=== PATIENT | female | born 1965 | race Caucasian/White ===

== ENCOUNTER → 2020-06-14 13:49 | Outpatient (CLI) | payer OTHER, SELFPAY ==
--- NOTE | 2020-06-14 13:52 | US_ITS ---
STUDY: THYROID ULTRASOUND REASON FOR EXAM: Female, 54 years old. HX OF LT THYROIDECTOMY TECHNIQUE: Ultrasound evaluation of the thyroid was performed with real-time and static arcos-scale imaging. COMPARISON: None. FINDINGS: RIGHT LOBE: The right lobe of the thyroid gland is enlarged and measures 5.8 cm x 3.2 centimeters x 2.2 cm. There is a heterogeneous echotexture. Multiple solid nodules are seen throughout the lobe. The largest measures 2.7 cm x 2.1 cm x 1.2 cm. Intramuscular nodular appearing nodular vascularity is seen. A biopsy is recommended. LEFT LOBE: The patient is status post left thyroidectomy. The regional lymph nodes are normal. US/Thyroid IMPRESSION: Enlargement of the right lobe of the thyroid with multiple solid nodules as described. A dominant nodule with increased vascularity is seen. This measures 2.7 cm x 2.1 cm by 1.2 cm. A biopsy is recommended. Electronically Signed: Max Serna, at 15:49 EDT , Service support ,
--- NOTE | 2020-06-14 14:23 | BD_ITS ---
STUDY: DUAL ENERGY X-RAY ABSORPTIOMETRY / DXA REASON FOR EXAM: Female, 54 years old. 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 COMPARISON: None. FINDINGS: Lumbar Spine (L1-L4): g/cm2 (1.112) / T-score (-0.5) / Z-score (0.4) Findings are suggestive of normal bone density with a low fracture risk. Left Femur Total: g/cm2 (0.732) / T-score (-2.2) / Z-score (-1.5) Left Femoral Neck: g/cm2 (0.716) / T-score (-2.3) / Z-score (-1.3) Right Femur Total: g/cm2 (0.730) / T-score (-2.2) / Z-score (-1.5) Right Femoral Neck: g/cm2 (0.666) / T-score (-2.7) / Z-score (-1.6) BD/Dexa Bone Density Study IMPRESSION: The patient is considered osteoporotic as outlined below according to World Colin Organization (WHO) criteria with a high fracture risk. Reference Information: The T-score is the number of standard deviations above or below the standard which is normal for young adults at their peak bone mineral density. The World Health Organization (WHO) interprets the T-scores as follows: Above -1 Normal bone density Between -1 and -2.5 Osteopenia Equal to / or below -2.5 Osteoporosis As a practical clinical guideline, osteopenia may be graded as follows: Mild -1 through -1.5 Moderate -1.6 through -2.0 Severe -2.1 through -2.4 The Z-score is the number of standard deviations above or below age-matched controls. A Z-score of less than -1.5 would be considered abnormal. References: 1. NIH Osteoporosis and Related Bone Diseases http://www.osteo.org 2. International Society for Clinical Densitometry http://www.iscd.org 3. National Osteoporosis Foundation http://www.nof.org Electronically Signed: Max Serna, at 15:55 EDT , Service support ,
== END ==
PROVIDERS: PCP Internal Medicine; Referring Provider Internal Medicine; Visit Provider Internal Medicine
DX: E04.1 Nontoxic single thyroid nodule (principal); Z78.0 Asymptomatic menopausal state
CPT/HCPCS: 76536; 77080

== ENCOUNTER → 2020-07-08 | Outpatient (CLI) | payer OTHER, SELFPAY ==
--- NOTE | 2020-07-08 13:00 | ASPS_PTH ---
PATIENT: IESHA WALLACE LOC: [facility] U#:[id number] AGE/SX: 54/F ROOM: RE07/08/[address]: Dr. Tom Rao MD : 1965 BED: DIS: 07/08/2020 SPEC #: [id number] RECD: 07/08/20 13:56 STATUS: JOHANA DADA #: [id number] HANDY: 07/08/20 13:[address]: Tom Rao DEPT: CYTOLOGY RECD BY: Opal Ya ENTERED: 07/11/20 13:38 SP TYPE: ASPIRATION OTHR DR: Dr. Beatrice Mayer DO Tissues: Thyroid gland, NOS Procedures: Special Stain Group II Cytology Other HEADER OPERATION: Ultrasound-guided fine needle aspiration right thyroid PRE-OP DIAGNOSIS: Uninodular goiter TISSUE SUBMITTED: Fine needle aspiration right thyroid (12 slides) DIAGNOSIS CYTOLOGY Fine needle aspiration, right thyroid nodule (smears): Adequate for evaluation. Negative, consistent with benign follicular/colloid nodule. AM:penny 07/12/20 CYTOLOGY STUDY Slides are reviewed. CYTOLOGY GROSS Received are 12 smears labeled with the patient's name and designated per the requisition as right thyroid. Submitted for staining. / penny 07/11/20 TC:5 CPT: 20971
[2020-07-08 13:04] VITALS: BMI 21.6
== END | disposition home or self-care (01) ==
PROVIDERS: PCP Internal Medicine; Referring Provider Surgery; Visit Provider Surgery
DX: E04.1 Nontoxic single thyroid nodule (principal)
CPT/HCPCS: 88161; 88313

== ENCOUNTER → 2020-07-15 09:39 | Outpatient (CLI) | payer OTHER, SELFPAY ==
[2020-07-08 13:04] VITALS: BMI 21.6
[2020-07-15] MEDS: Zoledronic Acid 5 MG 100 ML 300 MG IV (09:48)
[2020-07-15 09:52] VITALS: BP 93/71; PULSE 71; RESP 16; TEMP 36.3; O2SAT 100; BMI 22.3
[2020-07-15] MEDS: 0.9% NaCl Peripheral Flush Adult/Peds IV (09:58)
== END ==
PROVIDERS: PCP Internal Medicine; Referring Provider Internal Medicine; Visit Provider Internal Medicine
DX: M85.80 Other specified disorders of bone density and structure, unspecified site (principal)
CPT/HCPCS: 96365; A4216; J3489

== ENCOUNTER → 2021-03-14 19:53 | Outpatient (CLI) | payer OTHER, SELFPAY ==
[2020-07-15 09:52] VITALS: BMI 22.3
== END ==
PROVIDERS: PCP Internal Medicine; Visit Provider Internal Medicine
DX: R06.81 Apnea, not elsewhere classified (principal)
CPT/HCPCS: 95810

== ENCOUNTER → 2021-08-04 10:19 | Outpatient (CLI) | payer OTHER, SELFPAY ==
--- NOTE | 2021-08-04 10:24 | US_ITS ---
STUDY: THYROID ULTRASOUND REASON FOR EXAM: Female, 55 years old. THYROID NODULE, left thyroidectomy in 2011 TECHNIQUE: Ultrasound evaluation of the thyroid was performed with real-time and static arcos-scale imaging. COMPARISON: 06/14/2020 FINDINGS: RIGHT LOBE: The right lobe of the thyroid gland measures 5.6 x 2.8 x 2.3 cm. There is a homogeneous echotexture. 1.6 centimeter upper pole solid nodule. 2.8 cm upper pole solid nodule in the hospital, nodule with smooth borders. 1.1 cm mid thyroid solid nodule. 1.1 cm mid thyroid solid nodule. 1.5 cm lower pole solid nodule. 1.6 cm lower pole mostly solid nodule. ISTHMUS: The isthmus measures 1 mm. US/Thyroid IMPRESSION: 2.8 cm TI-RADS 3 nodule in the upper pole meets criteria for fine-needle aspiration. Electronically Signed: Jordon Carolina MD at 22:16 EDT Tel , Service support ,
== END ==
PROVIDERS: PCP Internal Medicine; Referring Provider Internal Medicine; Visit Provider Internal Medicine
DX: E04.1 Nontoxic single thyroid nodule (principal)
CPT/HCPCS: 76536

== ENCOUNTER → 2021-08-22 11:00 | Outpatient (CLI) | payer OTHER, SELFPAY ==
[2021-08-22] MEDS: 0.9% NaCl Peripheral Flush Adult/Peds IV (11:12)
[2021-08-22] MEDS: Zoledronic Acid 5 MG 100 ML 300 MG IV (11:12)
[2021-08-22 11:15] VITALS: BP 103/52; PULSE 67; RESP 16; TEMP 36.6; O2SAT 96
== END ==
PROVIDERS: PCP Internal Medicine; Referring Provider Internal Medicine; Visit Provider Internal Medicine
DX: M85.80 Other specified disorders of bone density and structure, unspecified site (principal)
CPT/HCPCS: 96365; A4216; J3489

== ENCOUNTER 2021-09-04 09:00 | Emergency (ER) | payer OTHER, SELFPAY ==
[2021-09-04 09:00] VITALS: BP 132/75; PULSE 93; RESP 16; TEMP 36.2; O2SAT 95; BMI 22.8
--- NOTE | 2021-09-04 09:20 | RAD_ITS ---
STUDY: X-RAY - RIGHT KNEE REASON FOR EXAM: Female, 55 years old. Injury. Pain. TECHNIQUE: 4 view(s) of the knee. COMPARISON: None. FINDINGS: Normal visualized distal femur. Normal visualized proximal tibia and fibula. Normal proximal tibiofibular articulation. Normal medial femorotibial compartment. Normal lateral femorotibial compartment. Normal patellofemoral articulation. The soft tissue structures are unremarkable. RAD/Knee 4 or More Views IMPRESSION: Normal x-ray examination of the knee. Electronically Signed: Haider Siu MD at 9:40 EST , Service support ,
--- NOTE | 2021-09-04 09:20 | RAD_ITS ---
STUDY: X-RAY - LEFT FOOT CLINICAL: Female, 55 years old. Injury. Pain. TECHNIQUE: 3 view(s) of the foot. COMPARISON: None. FINDINGS: Normal talus, calcaneus, and tarsal bones. Normal visualized subtalar, talonavicular, calcaneocuboid, tarsal and tarsometatarsal articulations. Comminuted nondisplaced fracture of the base of the fifth metatarsal. Normal metatarsophalangeal joint of the great toe. Normal tibial and fibular sesamoid bones. Normal interphalangeal joint of the great toe. Normal phalanges of the great toe. Normal second through fifth metatarsophalangeal joints. Normal interphalangeal joints and phalanges of the lesser toes. The soft tissue structures are unremarkable. RAD/Foot min 3 Views IMPRESSION: Base of fifth metatarsal fracture as described. Electronically Signed: Haider Siu MD at 9:39 EST , Service support ,
--- NOTE | 2021-09-04 09:20 | ED.VIS.FALL ---
HPI HPI - Fall History of Present Illness Chief Complaint: Fall Informant: patient Narrative Narrative: 55-year-old female states that last evening she was going down the basement stairs with laundry and slipped on it and fell. She states she twisted the left foot and ankle and then landed on the right knee. She has pain in the right knee as well as swelling and bruising on the left foot. She states that she is not able to bear weight. PFSH PFSH Medical History Anxiety Depression Thyroid nodule Allergy/AdvReac Type Severity Reaction Status Date / Time Iodinated Contrast Media Allergy Hives Verified 09/04/21 09:02 Surgical History S/P fine needle aspiration (~06/2020) s/p left thyroidectomy S/P parathyroidectomy s/p partial pancreas removal Social History Smoking Status: Current every day smoker tobacco type: cigarettes alcohol intake: current alcohol intake frequency: a few times a week ROS ROS ED Constitutional Constitutional ED: Denies chills or weight loss Eyes Eyes: Denies change in vision or diplopia ENT ENT ED: Denies ear pain, rhinorrhea or sore throat Cardiovascular Cardiovascular: Denies chest pain, orthopnea, palpitations or racing heartbeat Respiratory/Chest Respiratory/Chest: Denies cough, dyspnea or orthopnea Gastrointestinal Gastrointestinal: Denies abdominal pain, diarrhea, nausea or vomiting Genitourinary Genitourinary ED: Denies dysuria, hematuria or urinary frequency Musculoskeletal Musculoskeletal: Reports other Details: See history of present illness ; Denies arthralgias or myalgias Integumentary Denies abscess or rash Neurologic Neurologic: Denies headache(s) or weakness Psychiatric Psychiatric: Denies anxiety, depression, suicidal ideation or suicidal thoughts Endocrine Endocrinology: Denies polydipsia, polyphagia or polyuria Allergic/Immunologic Allergic/Immunologic ED: Denies mouth swelling, tongue swelling or urticaria EXAM Physical Exam Const Vital Signs: 09/04/21 09:00 Temperature 97.2 F L Temperature Source Temporal Pulse Rate 93 Respiratory Rate 16 Blood Pressure 132/75 H Blood Pressure Mean 94 Pulse Ox 95 Oxygen Delivery Method Room Air Positive well nourished and well developed General Appearance ED: well developed HEENT Reports normocephalic, head/scalp atraumatic and moist mucous membranes HEENT Narrative: Normal oral pharyngeal exam atraumatic Eyes PERRL and EOMs intact bilaterally Neck full ROM, no lymphadenopathy, supple and no JVD Resp normal respiratory effort and clear to auscultation bilaterally Cardio regular rate, regular rhythm and no murmurs GI normal to inspection, nondistended, normoactive bowel sounds and non-tender Palpation: soft Back/Spine no CVA tenderness and normal ROM Extremity Extremity Narrative: The left foot shows ecchymosis and swelling over the mid to lateral foot. No fifth metatarsal pain. There is tenderness over the dorsal surface of the midfoot. There is no fibular head pain. Negative Becerril's. No ankle tenderness. The right knee shows tenderness over the lateral tibial plateau. There is no effusion. Patella appears normal. Neurovascularly intact distal to the injuries General Extremety ED: Negative for edema General Extremity: Negative for edema Neuro oriented x3 and CN's II-XII intact bilaterally Sensorium / Orientation: alert Motor Exam: strength 5/5 throughout Psych mental status grossly normal Mood & Affect: Negative for depressed or tearful Skin no rashes or lesions noted and no wounds MDM MDM MDM Narrative Medical decision making narrative: My interpretation of the plain films of the left foot is a pseudo-Day fracture at the base of the fifth metatarsal. My interpretation of plain films of the right knee is no acute process. Patient was placed in a walking boot she does not wish to have any pain medications. I will refer her to podiatry. Radiography Diagnostic Testing: Clinical Impression(s) from Imaging Studies Foot X-Ray 09/04/21 09:20 IMPRESSION: Base of fifth metatarsal fracture as described. Electronically Signed: Haider Siu MD at 9:39 EST , Service support , Knee X-Ray 09/04/21 09:20 IMPRESSION: Normal x-ray examination of the knee. Electronically Signed: Haider Siu MD at 9:40 EST , Service support , Discharge Plan Triage Chief Complaint: Fall ED Provider: Tom Conner Dx/Rx/DC Orders Clinical Impression: Contusion of knee, right, Closed fracture of fifth metatarsal bone Instructions: Fifth Metatarsal Fx Primary Care Provider: Beatrice Mayer Referrals: Beatrice Mayer DO [Primary Care Provider] - Ignacio Olmos DPM [STAFF PHYSICIAN] - As soon as possible Disposition Disposition: Home, Self Care
== END 2021-09-04 10:20 | disposition home or self-care (01) ==
PROVIDERS: Emergency Provider Emergency Medicine; PCP Internal Medicine
DX: S92.355A Nondisplaced fracture of fifth metatarsal bone, left foot, initial encounter for closed fracture (principal); S80.01XA Contusion of right knee, initial encounter; W10.9XXA Fall (on) (from) unspecified stairs and steps, initial encounter; Y93.E2 Activity, laundry; Y92.9 Unspecified place or not applicable; Y99.9 Unspecified external cause status; F17.210 Nicotine dependence, cigarettes, uncomplicated
CPT/HCPCS: 73564; 73630; 99284

== ENCOUNTER → 2022-09-03 | Outpatient (CLI) | payer OTHER, SELFPAY ==
[2022-09-03 13:50] VITALS: BP 117/54; PULSE 80; RESP 16; TEMP 36.4; O2SAT 100; BMI 19.0
[2022-09-03] MEDS: DENOSUMAB 60 MG/ML SC (13:57)
== END | disposition home or self-care (01) ==
LOC: MEDOUTP 13:42
PROVIDERS: PCP Internal Medicine; Referring Provider Internal Medicine Endocrinology, Diabetes & Metabolism; Visit Provider Internal Medicine Endocrinology, Diabetes & Metabolism
DX: M81.0 Age-related osteoporosis without current pathological fracture (principal)
CPT/HCPCS: 96372; J0897

== ENCOUNTER → 2022-09-19 | Outpatient (CLI) | payer OTHER, SELFPAY ==
--- NOTE | 2022-09-19 10:31 | US_ITS ---
EXAM: US SOFT TISSUES HEAD AND NECK, THYROID CLINICAL INDICATION: Thyroid nodule TECHNIQUE: Sanchez scale and color doppler imaging was performed of the thyroid gland. This report was created using [employer] report generation technology. COMPARISON: None. FINDINGS: Absence of the left thyroid lobe. RIGHT THYROID LOBE: Right thyroid lobe measures 5.4 x 2.8 x 2.0 cm. Extensive nodular echotexture with no significant change in the size of the individual nodules. US/Thyroid IMPRESSION: Stable multinodular right thyroid gland. Electronically Signed: Yury Ramirez MD at 14:22 EST ,
--- NOTE | 2022-09-19 10:35 | BD_ITS ---
STUDY: DUAL ENERGY X-RAY ABSORPTIOMETRY / DXA REASON FOR EXAM: Female, 56 years old. 627.8Menopausal postmenopausalBONE DENSITY REASON FOR EXAM TECHNIQUE: Bone Mineral Density (BMD) measurements of lumbar spine and bilateral hips were obtained. COMPARISON: Comparison is made with prior examination 06/14/2020. FINDINGS: Lumbar Spine (L1-L4): g/cm2 (0.932) / T-score (-0.9) / Z-score (0.3) Findings are suggestive of normal bone density with a low fracture risk. Left Femur Total: g/cm2 (0.659) / T-score (-2.3) / Z-score (-1.5) Left Femoral Neck: g/cm2 (0.517) / T-score (-3.0) / Z-score (-1.8) Right Femur Total: g/cm2 (0.668) / T-score (-2.2) / Z-score (-1.4) Right Femoral Neck: g/cm2 (0.545) / T-score (-2.7) / Z-score (-1.6) The T-Scores on the most recent prior examination were: Lumbar Spine (L1-L4): There has been worsening of bone density since the previous examination. Left Femur Total: which represents a worsening of 2.3%. Right Femur Total: which represents a worsening of 4.6%. BD/Dexa Bone Density Study IMPRESSION: The patient is considered osteoporotic as outlined below according to World Colin Organization (WHO) criteria with a high fracture risk. There has been worsening of bone density since the previous examination. Reference Information: The T-score is the number of standard deviations above or below the standard which is normal for young adults at their peak bone mineral density. The World Health Organization (WHO) interprets the T-scores as follows: Above -1 Normal bone density Between -1 and -2.5 Osteopenia Equal to / or below -2.5 Osteoporosis As a practical clinical guideline, osteopenia may be graded as follows: Mild -1 through -1.5 Moderate -1.6 through -2.0 Severe -2.1 through -2.4 The Z-score is the number of standard deviations above or below age-matched controls. A Z-score of less than -1.5 would be considered abnormal. References: 1. NIH Osteoporosis and Related Bone Diseases www osteo.org 2. International Society for Clinical Densitometry www iscd.org 3. National Osteoporosis Foundation www nof.org Electronically Signed: Max Serna MD at 15:27 EST ,
== END | disposition home or self-care (01) ==
PROVIDERS: PCP Internal Medicine; Visit Provider Internal Medicine
DX: E04.1 Nontoxic single thyroid nodule (principal); Z78.0 Asymptomatic menopausal state
CPT/HCPCS: 76536; 77080

== ENCOUNTER → 2023-07-25 | Outpatient (CLI) | payer OTHER, SELFPAY ==
--- NOTE | 2023-07-25 12:57 | ART_ITS ---
Reason For Study: Polyneuropathy Procedure A bilateral upper extremity continuous wave Doppler with analog waveform analysis and segmental pressures. Left Segmental Pressures Left brachial= 125mmHg. Left forearm by way of the radial artery = 124mmHg. Left radial= 141mmHg. Left ulnar= 138mmHg. Left digit = 118 mmHg. The left brachial waveforms are triphasic. The left radial waveforms are triphasic. The left ulnar waveforms are triphasic. Right Segmental Pressures Right brachial= 125mmHg. Right forearm pressure by way of the radial artery = 127mmHg. Right radial= 150mmHg. Right ulnar= 147mmHg. Right digit = 123 mmHg. The right brachial waveforms are triphasic. The right radial waveforms are triphasic. The right ulnar waveforms are triphasic. Indices The right wrist-brachial index is 1.20. The right digital-brachial index is 0.98. The left wrist- brachial index is 1.13. The left digital-brachial index is 0.94. VL/Upper Extremity Arterial Study Interpretation Summary Right wrist-brachial index 1.2, normal. Digit index and Doppler/PVR waveforms o f the right arm normal at rest. Left wrist-brachial index 1.13, normal. Digit index and Doppler/PVR waveforms o f the left arm normal at rest. Ordering Physician: Beatrice Mayer Referring Physician: Beatrice Mayer D.O. Performed By: Tashi Henriquez RVT
== END | disposition home or self-care (01) ==
LOC: CVS 12:57
PROVIDERS: PCP Internal Medicine; Referring Provider Internal Medicine; Visit Provider Internal Medicine
DX: G62.9 Polyneuropathy, unspecified (principal); R60.0 Localized edema
CPT/HCPCS: 93923

== ENCOUNTER → 2023-11-04 | Outpatient (CLI) | payer OTHER, SELFPAY ==
--- NOTE | 2023-11-04 12:54 | US_ITS ---
STUDY: THYROID ULTRASOUND REASON FOR EXAM: Female, 58 years old. Thyroid nodule -- thyroid nodule TECHNIQUE: Ultrasound evaluation of the thyroid was performed with real-time and static arcos-scale imaging. COMPARISON: September 19, 2022 and August 04, 2021 FINDINGS: RIGHT LOBE: The right lobe of the thyroid gland measures 5.2 x 2.9 x 2.2 cm. There is a heterogeneous echotexture. There is a persistent stellate dominant mass within the right thyroid with radiating bands and essentially located calcification. There is visualized focal vascularity. This nodule measures 3.0 x 1.9 x 2.9 cm with the measured volume is 6.2 mL. Compared to prior study the right was 4.7 mL with a measurement of 2.9 x 1.5 x 2.1 cm. The highly vascular appearing mass. There is a persistent solid appearing nodule measuring 1.2 x 1.4 x 1.3 cm. LEFT LOBE: There has been a left side thyroidectomy. ISTHMUS: The isthmus measures 4.6 . There is adjacent mildly thickened cortical lymph nodes present in the left neck measuring 1.1 x 0.4, 1.6 x 0.4 and 0.8 cm. US/Thyroid IMPRESSION: Highly suspicious appearing large mass dominant mass within the right thyroid with a stellate appearance with a low attenuating or fluid and partially calcified center which morphologically is concerning for neoplasm. The volume is measured as larger than prior study August 04, 2021. This has been previously biopsied recommend consideration for repeating the biopsy if possible. This falls into a category of moderately suspicious for which a fine-needle aspiration is warranted if the lesion is greater than 1.5 cm. Solid-appearing nodule right thyroid fairly similar in size to the prior study. This particular lesion appears taller than wide which is similar to the prior study which falls into a category of moderately suspicious as well which are final aspiration is warranted if its greater than 1.5 cm. Status post left nephrectomy. Visualized active Neck Soft Tissue lymph nodes. Electronically Signed: Cherry Bermudez MD at 3:26 EST ,
== END | disposition home or self-care (01) ==
PROVIDERS: PCP Internal Medicine; Referring Provider Internal Medicine; Visit Provider Internal Medicine
DX: E04.1 Nontoxic single thyroid nodule (principal)
CPT/HCPCS: 76536

== ENCOUNTER → 2023-11-13 | Outpatient (CLI) | payer OTHER, SELFPAY ==
--- NOTE | 2023-11-13 09:45 | US_ITS ---
STUDY: ABDOMINAL ULTRASOUND - RIGHT UPPER QUADRANT; ELASTOGRAPHY REASON FOR VISIT: Female, 58 years old. Elevated liver function tests. TECHNIQUE: Ultrasound evaluation of the right upper quadrant was performed with real-time and static arcos-scale imaging. Point quantification shear wave elastography was performed ([employer]). TECHNICAL QUALITY: Adequate. COMPARISON: None. FINDINGS: Liver: The liver measures 13.3 cm. There is increased echogenicity consistent with fatty infiltration. The bile ducts are within normal limits. There is hepatic color flow. The direction of portal flow is hepatopetal. There is no demonstrated mass lesion. Median liver stiffness measured 10.7 kPa. Gallbladder: Normal distended gallbladder. The gallbladder wall measures 1.7 mm. There is a negative sonographic Shelby''s sign. There is no pericholecystic fluid. There are no gallstones. Common Bile Duct (C.B.D.): The common bile duct measures 4.1 mm. Pancreas: There is normal echogenicity of the visualized pancreas. There is no demonstrated pancreatic mass or cyst. Right Kidney: Normal size of the right kidney. The right kidney measures 10.2 cm x 4.8 cm x 4.1 cm. Normal renal cortex. The right cortex measures 1.0 cm. There is no demonstrated renal mass or cyst. There is no right hydronephrosis. US/ABD Limited w/ Elastography IMPRESSION: 1. Liver stiffness measures 10.7 kPa compatible with F2-F3 (Mild to moderate liver fibrosis) Metavir score. Electronically Signed: Max Serna MD at 13:12 EST ,
== END | disposition home or self-care (01) ==
PROVIDERS: PCP Internal Medicine; Referring Provider Internal Medicine; Visit Provider Internal Medicine
DX: R79.89 Other specified abnormal findings of blood chemistry (principal)
CPT/HCPCS: 76705; 76981

== ENCOUNTER 2024-02-17 11:30 | Outpatient (RCR) | payer OTHER, SELFPAY ==
--- NOTE | 2024-01-28 14:18 | HP.PTEVAL_ITS ---
Patient's Visit Information Visit Information Visit Information: IESHA WALLACE is a 58 year old F referred to Physical Therapy by Dr. Beatrice Mayer DO with a diagnosis of NECK PAIN. Date of Evaluation: 01/28/24 Physical Therapist: Gunjan Benites PT, Cert MDT Visit Plan Frequency: 1-2x /Week Duration: 4-6 Weeks Plan: US, E-STIM WITH MH, STM, POSTURE CORRECTION, INSTRUCTION IN APPROPRIATE ACTIVITY MODIFICATIONS, CERVICAL ROM, NECK AND UE STRENGTHENING EX TO HELP MEET SET GOALS. 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 [employer] - WORKING ABOUT 50 TO 55 HOURS A WK - 7 DAYS A WK. Disability: NO Present symptoms: SHAYNA NECK PAIN R > L. CONSTANT NUMBNESS TIPS OF SHAYNA FINGERS. OTHREWISE PATIENT DENIES SHAYNA UE NUMBNESS AND TINGLING. INTERMITTENT R UPPER ARM PAIN. MILD GRIMM'S ABOUT ONCE A WEEK. PROGRESSIVE DIFFICULTY WRITING. Present since: 10 YEARS AGO. FLARED UP IN SEP 2023. Pain Scale: Worst - 8/10 Least - 2/10 Currently: 2/10 Commenced as a result of: NO APPARENT REASON. Symptoms at onset: NECK PAIN Worse: STRESS, TRYING TO WRITE, LOOKING AT COMPUTER AND WRITING AT SAME TIME, TURNING HEAD TO LOOK TO BACK OUT IN CAR, TURNING HEAD IN GENERAL. HOLDING PHONE AND WRITING. Better: NECK BRACE AT BED FOR ABOUT 3 MONTHS OR MORE, OTC PAIN PATCHES. Disturbed sleep: YES Previous history/Previous treatment: PHYSICAL THERAPY AT [facility] 10 YEARS AND HELPED FOR YEARS INCLUDING SOME MASSAGE. OTHERWISE HAS MANAGED ON HER OWN AVOIDING CERTAIN MVMTS. NO CHIROPRACTIC. NO NECK SURGERY. NO NECK INJECTIONS. This episode: NOTHING. Dizziness: NO Tinnitus: YES Nausea: YES Shortness of Breath: NO Difficulty Swollowing: YES - ABOUT ONCE A WEEK - FOR ABOUT 4 YEARS. Gait: NORMAL Accidents: NO Unexplained weight loss: NO Imaging: RECENT NECK X-RAY: IMPRESSION: Moderate degenerative disc disease with 4 mm of anterolisthesis of C4 on C5 and straightening of the normal lordotic curvature. PMH/Recent major surgery: OSTEOPOROSIS, MEN-1, DEPRESSION, 1/2 PANCREASE AND SPLEEN REMOVED. 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 SURGERIES WERE FOR MEN-1 WHICH RESULTS IN OVER PRODUCTION OF CALCIUM. RAYNAUDS DZ. Objective Objective: Sitting Posture/Standing Posture: FORWARD HEAD. ROUNDED SHOULDERS. NO TORTICOLLIS. Active Correction of posture: BETTER. ABLE TO CORRECT BUT NOT MAINTAIN. Other Observations: INDEP GAIT AND TRANSFERS. Sensory deficit: SHAYNA UE LIGHT TOUCH SENSATION GROSSLY INTACT AND SYMMETRICAL. PATIENT IS ABLE TO IDENTIFY ALL FINGER TIPS BEING TOUCHED WITH EYES CLOSED WITH TESTING BUT REPORTS NUMBNESS IN ALL TIPS. ROM deficit: SHAYNA UE ROM WFL AND ABLE TO OPPOSE ALL FINGERS. Motor deficit: SHAYNA UE'S GROSSLY 5/5 WITH MMT'ING EXCEPT SHLD'S 4/5. 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 Reflexes: 1+ SHAYNA UE'S. Dural Signs: POSITIVE R UE. Cervical Mvmt Loss: Flex: MIN - INCREASES - NW Pro: NIL - NE Ext: MIN - INCREASES - NW Ret: MOD - NE RSB: MOD - INCREASES - W* LSB: MOD - INCREASES - W R Rot: KUSUM - INCREASES - W L Rot: KUSUM - INCREASES - W Postural strength: FAIR Palpation: INCREASED MUSCLE TONE SHAYNA CERVICAL MUSCULATURE THROUGHOUT. TENDERNESS THROUGHOUT WELL ESPECIALLY SHAYNA UT'S AND SHAYNA UT'S HAVE MULTIPLE TRIGGER POINTS. Balance/Special Test Scores Oswestry Neck Score: 22 Goals Goal 1:: DECREASE C/O NECK AND UE SX'S BY AT LEAST 50% TO EASE WORK AND ADL FUNCTION Goal Time Frame: 4-6 Weeks Goal 2:: PATIENT WILL HAVE INCREASED PAINFREE CERVICAL ROM ALL PLANES TO EASE WO RK AND ALD FUNCTION Goal Time Frame: 4-6 Weeks Goal 3:: PATIENT WILL HAVE INCREASED UE AND POSTURAL STRENGTH TO ALL FOR RETURN TO PLOF Goal Time Frame: 6-8 Weeks Goal 4:: PATIENT'S NECK OSWESTRY SCORE WILL IMPROVE BY AT LEAST 5 POINTS. Goal Time Frame: 2-4 Weeks Goal 5:: PATIENT WILL BE INDEP WITH A HEP FOR CONTINUED IMPROVEMENT ONCE FORMAL PHYSICAL THERAPY CONCLUDES. Goal Time Frame: 6-8 Weeks Rehabilitation Potential Physical Therapy Diagnosis: THIS PATIENT PRESENTS TO PT WITH SIGNIFICANT CERVICAL MVMT LOSS AND MUSCLE GUARDING. SHE ALSO HAS POSTURAL/SHLD WEAKNESS. Rehabilitation Potential: Fair Anticipated Interventions Patient/Client Instruction: Educate patient on: Condition, Plan of Care and Ri sk Factors For the Purpose of:: To improve self management Therapeutic Exercise to Include: Strength training, Body mechanics, Postural training, Flexibilty training, Neuromotor development and Scapular Strength/Stabilization For the Purpose of:: To decrease pain, To increase ROM, To improve muscle performance and motor function, To increase tolerance to activity/condition/position and To improve ability of physical actions for home/community/work/leisure Manual Therapy Techniques to Include: Trigger point massage and Soft tissue mobilization For the Purpose of:: To decrease pain and To improve nutrient delivery to tissue Thermo therapy (hot pack): Yes Ultrasound (thermal/non thermal): Yes (1.3 W/CM2 100% X 8 MIN TO SHAYNA POSTERIOR CERVICAL MUSCULATURE) For the Purpose of:: To decrease pain and To improve nutrient delivery to tissue Text: Thank you for the opportunity to evaluate your patient. For Medicare and Medicare HMO plans, please review the plan of care and approve it. It will need to be FAXED BACK to us at [phone] for Medicare purposes. For Medicare only, by signing this I certify the plan of care. Please let me know if there are questions or concerns regarding this plan of care. Physician Signature: Date:
== END 2024-02-17 19:00 | disposition home or self-care (01) ==
LOC: PT 11:30
PROVIDERS: PCP Internal Medicine; Visit Provider Internal Medicine
DX: M54.2 Cervicalgia (principal)
CPT/HCPCS: 97035; 97162; 97530

== ENCOUNTER → 2024-09-29 | Outpatient (CLI) | payer OTHER, SELFPAY ==
--- NOTE | 2024-09-29 15:09 | BD_ITS ---
STUDY: DUAL ENERGY X-RAY ABSORPTIOMETRY / DXA REASON FOR EXAM: Female, 58 years old. [id number] -- Postmenopausal status TECHNIQUE: Bone Mineral Density (BMD) measurements of lumbar spine and bilateral hips were obtained. COMPARISON: Comparison is made with prior study dated September 19, 2022. FINDINGS: Lumbar Spine (L1-L4): g/cm2 (0.957) / T-score (-0.7) / Z-score (0.7) Findings are suggestive of normal bone density with a low fracture risk. Left Femur Total: g/cm2 (0.691) / T-score (-2.1) / Z-score (-1.1) Left Femoral Neck: g/cm2 (0.564) / T-score (-2.6) / Z-score (-1.3) Right Femur Total: g/cm2 (0.702) / T-score (-2.0) / Z-score (-1.0) Right Femoral Neck: g/cm2 (0.573) / T-score (-2.5) / Z-score (-1.2) The T-Scores on the most recent prior examination were: Lumbar Spine (L1-L4): There has been improvement of bone density since the previous examination. Left Femur Total: which represents an improvement of 5%. Right Femur Total: which represents an improvement of 5.2%. BD/Dexa Bone Density Study IMPRESSION: The patient is considered osteoporotic as outlined below according to World Colin Organization (WHO) criteria with a high fracture risk. There has been improvement of bone density since the previous examination. Reference Information: The T-score is the number of standard deviations above or below the standard which is normal for young adults at their peak bone mineral density. The World Health Organization (WHO) interprets the T-scores as follows: Above -1 Normal bone density Between -1 and -2.5 Osteopenia Equal to / or below -2.5 Osteoporosis As a practical clinical guideline, osteopenia may be graded as follows: Mild -1 through -1.5 Moderate -1.6 through -2.0 Severe -2.1 through -2.4 The Z-score is the number of standard deviations above or below age-matched controls. A Z-score of less than -1.5 would be considered abnormal. References: 1. NIH Osteoporosis and Related Bone Diseases www osteo.org 2. International Society for Clinical Densitometry www iscd.org 3. National Osteoporosis Foundation www nof.org Electronically Signed: Max Serna MD at 8:49 EST ,
== END | disposition home or self-care (01) ==
LOC: OPBD 15:08
PROVIDERS: PCP Internal Medicine; Referring Provider Internal Medicine; Visit Provider Internal Medicine
DX: M81.0 Age-related osteoporosis without current pathological fracture (principal); Z78.0 Asymptomatic menopausal state
CPT/HCPCS: 77080

== ENCOUNTER → 2024-11-20 | Outpatient (CLI) | payer OTHER, SELFPAY ==
--- NOTE | 2024-11-20 10:56 | US_ITS ---
PROCEDURE: Ultrasound of the abdomen elastography limited. REASON FOR EXAM: Fatty infiltration of the liver. COMPARISON: Comparison is made with prior study dated November 13, 2023. TECHNIQUE: Right upper quadrant abdominal ultrasound. VENNCOMM ElastQ Imaging shear wave elastography for non-invasive assessment of liver tissue stiffness. VENNCOMM EPIQ Elite. FINDINGS: LIVER: Size: Unremarkable Length: 13.7 cm Echotexture: Diffusely echogenic suggesting fatty infiltration Contour: Normal Lesions: None identified Elastography: EQI Med: 5.1 kPa EQI Med Jacky: 1.3 m/s IQR/Med: 12 %* GALLBLADDER: Normal COMMON BILE DUCT: Normal 5.6. PANCREAS: Partial pancreatectomy. Visualized portions of the right kidney are unremarkable. No right upper quadrant ascites. US/ABD Limited w/ Elastography IMPRESSION: NO TO MILD HEPATIC FIBROSIS Reference Values: SRU <1.37 m/s (5.7kPa): No to mild fibrosis 1.37 m/s - 2.2 m/s: Moderate to severe fibrosis >2.2 m/s (15kPa): Significant fibrosis / cirrhosis METAVIR Score F2 or higher: 1.34 m/s (5.7kPa) F3 or higher: 1.55 m/s (7.3kPa) F4: 1.80 m/s (10kPa) * If the IQR/Med is >30%, the variance in the measurements is a large and the a ccuracy of the measurement may be in question. Reading Location: [id number]
--- NOTE | 2024-11-20 10:56 | US_ITS ---
PROCEDURE: Thyroid ultrasound REASON FOR EXAM: Nodule COMPARISON: 11/04/2023 PROCEDURE: Diffusely heterogeneous thyroid echotexture. Right thyroid lobe measures 5.5 x 2.9 x 2.0 cm. Ovoid solid hypoechoic/hyperechoic right lobe nodule with increased vascularity in the right lobe measuring 3.1 x 2.2 x 1.7 cm (previously 3.0 x 2.1 x 1.9 cm), TR 3 lesion. Ovoid solid isoechoic right lobe nodule measuring 1.2 x 1.5 x 1.6 cm (previously 1.3 x 1.4 x 1.4 cm), TR 3 lesion. US/Thyroid IMPRESSION: Heterogeneous right thyroid lobe with 2 nodules as described above. Tissue andrea pling of the larger nodule is recommended per ACR guidelines. 12 month follow-up recommended for the smaller right lobe nodule p er ACR guidelines. Reading Location: [facility]
== END | disposition home or self-care (01) ==
PROVIDERS: PCP Internal Medicine; Referring Provider Internal Medicine; Visit Provider Internal Medicine
DX: K76.0 Fatty (change of) liver, not elsewhere classified (principal); E04.1 Nontoxic single thyroid nodule
CPT/HCPCS: 76536; 76705; 76981

== ENCOUNTER → 2025-07-19 | Outpatient (CLI) | payer OTHER, SELFPAY ==
[2025-07-19 13:01] LABS: Mucous, Urine 0 SEEN /hpf (<or=2+); Red Blood Cells-Urine 0 SEEN /hpf (0-5)
[2025-07-19 13:04] LABS: Hematocrit 43.1 % (37-47); Hemoglobin 14.8 g/dL (12.0-15.0); Immature Granulocytes Count 0.050 X10^3/uL (0.0-0.0); Mean Corp Hgb Conc 34.3 g/dL (32-36); Mean Corpuscular Volume 103.6 fL (81-99); Mean Platelet Vol. 11.6 fl (6.2-12.0); NRBC Flagged by Analyzer 0 % (0-5); Platelet Count 301 K/mm3 (150-450); RBC Distribution Width CV 13.2 % (11.6-14.6); RBC Distribution Width SD 50.3 fl (35.1-43.9); Red Blood Count 4.16 M/mm3 (4.2-5.4); White Blood Count 9.9 K/mm3 (4.4-11.0)
[2025-07-19 13:13] LABS: Color, Urine Yellow (Yellow); Glucose, Dipstick Normal (Normal); Ketone-Dipstick 15 mg/dl (Negative); Leukocyte Esterase-Dipstick Negative /ul (Negative); Nitrite-Dipstick Negative (Negative); Occult Blood-Urine Negative /ul (Negative); Protein-Dipstick 15 mg/dl (Negative); Specific Gravity, Urine 1.010 (1.002-1.030); Urine Bilirubin Dipstick Negative (Negative)
[2025-07-19 13:28] LABS: Squamous Epithelial Cells - UA 0-5 SEEN /hpf (5-10)
[2025-07-19 13:29] LABS: AST(SGOT) 30 U/L (<=31); Alanine Aminotransfer ALT/SGPT 27 U/L (<=34); Albumin, Serum 4.7 g/dL (3.4-4.8); Alkaline Phosphatase 93 U/L (35-104); Anion Gap 13 (5-15); BUN 9 mg/dL (4-19); BUN/Creat Ratio 13.1 RATIO (10-20); Calcium,Total 10.4 mg/dL (7.6-11.0); Carbon Dioxide 23.1 mmol/L (21.0-32.0); Chloride 102 mmol/L (98-108); Globulin 2.6 g/dL (2.2-4.2); Glucose 115 mg/dL (70-99); Potassium 5.5 mmol/L (3.3-5.1)
== END | disposition home or self-care (01) ==
LOC: LABSPEC 12:20
PROVIDERS: PCP Internal Medicine; Referring Provider Internal Medicine; Visit Provider Internal Medicine
DX: K76.0 Fatty (change of) liver, not elsewhere classified (principal); M81.0 Age-related osteoporosis without current pathological fracture
CPT/HCPCS: 80053; 81001; 82105; 85025

== ENCOUNTER → 2025-07-26 | Outpatient (CLI) | payer OTHER, SELFPAY ==
[2025-07-26 12:54] LABS: Potassium 4.6 mmol/L (3.3-5.1)
== END | disposition home or self-care (01) ==
LOC: MTLAB 09:49
PROVIDERS: PCP Internal Medicine; Referring Provider Internal Medicine; Visit Provider Internal Medicine
DX: E87.5 Hyperkalemia (principal)
CPT/HCPCS: 36415; 84132